=== PATIENT | female | born 1950 | race Hispanic/Latino ===

== ENCOUNTER 2017-07-18 12:26 | Emergency (ER) | payer MEDICARE, OTHER ==
[~2017-07-18] VITALS: Ht 149.9 cm; Wt 46.7 kg
[~2017-07-18 12:26] MED LIST: BENICAR/HCTZ PO; DICYCLOMINE HCL10 MG PO; MELATONIN 5 MG1 EAC1 PO; ONDANSETRON HCL8 MG PO; POTASSIUM GLUCONATE PO; TEMAZEPAM15 MG PO; TUMS ULTRA1000 MG PO; VIT B 12 PO; Z.0.ACIPHEX20 MG PO; Z.0.ALENDRONATE SOD7 PO; Z.0.ENABLEX15 MG PO; Z.0.FLURAZEPAM HCL30 PO; Z.0.MULTIVITAMINS1 E; Z.0.VITAMIN C500 MG PO; Z.0.VITAMIN D3 1,01 PO; [UNRECOGNIZED DRUG - OTHER] PO
[2017-07-18 14:38] VITALS: BP 131/71
== END 2017-07-18 14:40 | disposition home or self-care (01) ==
LOC: FSED 12:26
DX: R07.1 Chest pain on breathing (principal); R09.1 Pleurisy; I10 Essential (primary) hypertension
CPT/HCPCS: 71046; 93005; 99283

== ENCOUNTER 2018-07-12 15:32 | Emergency (ER) | payer MEDICARE ==
[~2018-07-12] VITALS: Ht 149.9 cm; Wt 56.4 kg
--- OUTSIDE RECORDS SUMMARY | 2018-07-12 15:35 | XMS REPORT ---
Author Author [facility] Address Unknown Phone Unavailable Care Team Providers Care Drop Shipment Clerk Name Role Phone Unavailable Unavailable Problems This patient has no known problems. Allergies, Adverse Reactions, Alerts This patient has no known allergies or adverse reactions. Medications This patient has no known medications. Results Test Description Test Time Test Comments Text Results Atomic Results Result Comments SCR MAMM BILATERAL SATNAM CAD DIGITAL 2018-06-17 12:27:22 - SCR MAMM BILATERAL SATNAM CAD DIGITALBILATERAL DIGITAL SCREENING MAMMOGRAM 3D/2D WITH CAD: 06/16/2018CLINICAL: Asymptomatic. Digital breast tomosynthesis was performed in addition to routine CC and MLO views. Current mammographic images were evaluated by either a Vigme M-Vu or a [place] ImageChecker CAD (computer aided detection system). Comparison is made to exams dated 04/22/2017 mammogram, mammogram, and 07/04/2014 mammogram - [facility]-. There are scattered fibroglandular tissues in both breasts. There are benign calcifications in both breasts. No suspicious mass, architectural distortion, malignant type calcification, or lymph node abnormality detected. Breast architecture is stable compared to prior exams.IMPRESSION: BENIGNThere is no mammographic evidence of malignancy. Resume annual screening mammography in one year. Danny hensley/penrad:06/17/2018 12:27:22 Flight Inspector: Ronit MORA, [facility]-FWletter sent: BIRADS 1-2 Normal Mammogram BI-RADS: 2 Benign
[2018-07-12] MEDS ORDERED: PANTOPRAZOLE SO40 MG PO (16:46)
[2018-07-12] MEDS ORDERED: BENICAR HCT 201 EACH (16:46)
== END 2018-07-12 17:15 | disposition home or self-care (01) ==
LOC: FSED 15:32
DX: R05 Cough (principal); J06.9 Acute upper respiratory infection, unspecified; I10 Essential (primary) hypertension
CPT/HCPCS: 99283

== ENCOUNTER → 2019-11-07 | Day surgery (SDC) | payer OTHER ==
[2019-11-03 10:20] LABS: BASOPHILS % 0.5 % (0.0-1.0); EOSINOPHILS # (AUTO) 0.1 (0.0-0.4); EOSINOPHILS % 1.3 % (0.0-6.0); HEMOGLOBIN 12.7 g/dL (12.0-16.0); LYMPHOCYTES # (AUTO) 2.2 (1.0-3.2); LYMPHOCYTES % 35.2 % (18.0-39.1); MEAN CORPUSCULAR HEMOGLOBIN 27.7 pg (28-32); MEAN CORPUSCULAR HGB CONC 31.8 g/dL (31-35); MEAN CORPUSCULAR VOLUME 87.1 fL (81-99); MONOCYTES # (AUTO) 0.3 (0.2-0.8); MONOCYTES % 5.3 % (4.4-11.3); NEUTROPHILS # (AUTO) 3.6 (2.1-6.9); NEUTROPHILS % 57.5 % (38.7-80.0); PLATELET COUNT 214 x10e3/uL (140-360); RED BLOOD COUNT 4.59 x10e6/uL (3.6-5.1); RED CELL DISTRIBUTION WIDTH 13.6 % (11.7-14.4)
[~2019-11-07] MED LIST changes: +BENICAR HCT 201 EACH; +PANTOPRAZOLE SO40 MG PO; +POTASSIUM CHLO10 ME1 PO; +PROPOFOL IV EMULSION 10 MG/ML 20 ML VIAL ONE; +SIMETHICONE 40 MG/0.6 ML BTL ONE; +VITAMIN B-121000 MCG PO; +VITAMIN D3125 MCG PO
[2019-11-07 14:30] VITALS: BP 112/79
== END | disposition home or self-care (01) ==
LOC: OR 10:45
PROVIDERS: ATTEND Internal Medicine Gastroenterology
DX: K21.9 Gastro-esophageal reflux disease without esophagitis (principal); Z86.010 Personal history of colon polyps; K31.7 Polyp of stomach and duodenum; K29.50 Unspecified chronic gastritis without bleeding; K44.9 Diaphragmatic hernia without obstruction or gangrene; K57.30 Diverticulosis of large intestine without perforation or abscess without bleeding; K64.1 Second degree hemorrhoids; Z71.3 Dietary counseling and surveillance; I10 Essential (primary) hypertension; Z01.810 Encounter for preprocedural cardiovascular examination; Z01.812 Encounter for preprocedural laboratory examination; Z01.818 Encounter for other preprocedural examination; Z87.891 Personal history of nicotine dependence
CPT/HCPCS: 36415; 43239; 45378; 85025; 87635; 93005